=== PATIENT | female | born 1985 | race American Indian/Alaskan Native ===

== ENCOUNTER 2021-02-08 03:32 | Emergency (ER) | payer SELFPAY ==
--- NOTE | 2021-02-08 03:46 | Emergency Department Report ---
ED General Adult HPI - General Chief complaint: Dyspnea/Respdistress Stated complaint: SOB PUI?: Yes Time Seen by Provider: 02/08/21 03:45 Source: patient, RN notes reviewed Mode of arrival: Ambulatory Limitations: No Limitations - History of Present Illness Initial comments: The patient was evaluated in the emergency department for symptoms described in the history of present illness. He/she was evaluated in the context of the global COVID-19 pandemic, which necessitated consideration that the patient might be at risk for infection with the virus that causes COVID-19. Institutional protocols and algorithms that pertain to the evaluation of patients at risk for COVID-19 are in a state of rapid change based on informati on released by regulatory bodies including the CDC and federal and state organizations. These policies and algorithms were followed during the patient's care in the emergency department. Please note that these policies, procedures and recommendations changed on a rapid basis. The patient is a 35-year-old female who is not known to myself previously. She is not vaccinated against COVID-19. Her past medical history includes reactive airways disease, she believes that she is , and she believes that she is 3, para 2. She also has a history of irregular menstruation, and repo rts that last menstruation is in October 2020. The patient presents to the ER today with a complaint of chest tightness, cough, wheezing, shortness of breath and clear mucus production, associated with loss of taste for the past 3 to 4 days. Denies travel, surgery, immobilization, leg pain or leg swelling. Endorses mild nausea and vomiting. No urinary symptoms. She reports positive home test, but has not had formal medical confirmation of suspected . She reports that she does not smoke cigarettes. -: Gradual, days(s) Consistency: constant Improves with: rest Worsens with: movement - Related Data Previous Rx's Medication Instructions Recorded Last Taken Type Albuterol Sulfate [Proair 90 mcg IH Q4HR PRN #2 aer.pow.ba 02/08/21 Unknown Rx Respiclick] Doxylamine Succinate/Vit B6 1 each PO QHS PRN #30 tablet. 02/08/21 Unknown Rx [Roberto Carlos Espinal 10-10 mg Tablet] Jarret Root [Jarret] 250 mg PO QID PRN #30 capsule 02/08/21 Unknown Rx Multivitamin with Folic Acid [[facility] 400 mcg PO QDAY #30 tablet 02/08/21 Unknown Rx One Daily Essential Tablet] Vit-Fe Fumar-FA [ 1 tab PO QDAY #30 tablet 02/08/21 Unknown Rx Vitamin] predniSONE [Deltasone] 40 mg PO QDAY #8 tab 02/08/21 Unknown Rx Allergies Allergy/AdvReac Type Severity Reaction Status Date / Time No Known Allergies Allergy Unverified 07/24/14 19:35 ED Review of Systems ROS: Stated complaint: SOB Other details as noted in HPI Constitutional: malaise, weakness, other (Loss of taste) Eyes: denies: eye discharge Respiratory: cough, shortness of breath Cardiovascular: denies: syncope Gastrointestinal: nausea, vomiting Genitourinary: denies: urgency Neurological: weakness Psychiatric: anxiety Hematological/Lymphatic: denies: easy bleeding ED Past Medical Hx - Past Medical History Previous Medical History?: No - Surgical History Additional Surgical History: - Social History Smoking Status: Never Smoker Substance Use Type: None - Medications Home Medications: Home Medications Medication Instructions Recorded Confirmed Last Taken Type Albuterol Sulfate [Proair 90 mcg IH Q4HR PRN #2 aer.pow.ba 02/08/21 Unknown Rx Respiclick] Doxylamine Succinate/Vit B6 1 each PO QHS PRN #30 tablet.dr 02/08/21 Unknown Rx [Roberto Carlos Espinal 10-10 mg Tablet] Jarret Root [Jarret] 250 mg PO QID PRN #30 capsule 02/08/21 Unknown Rx Multivitamin with Folic Acid [[facility] 400 mcg PO QDAY #30 tablet 02/08/21 Unknown Rx One Daily Essential Tablet] Vit-Fe Fumar-FA [ 1 tab PO QDAY #30 tablet 02/08/21 Unknown Rx Vitamin] predniSONE [Deltasone] 40 mg PO QDAY #8 tab 02/08/21 Unknown Rx ED Physical Exam - General Limitations: Physical Limitation General appearance: alert, anxious, obese - Head Head exam: Present: atraumatic, normocephalic - Eye Eye exam: Present: normal appearance, EOMI. Absent: nystagmus - ENT ENT exam: Present: normal exam, normal orophraynx, mucous membranes moist, normal external ear exam - Neck Neck exam: Present: normal inspection, full ROM. Absent: tenderness, meningismus - Respiratory Respiratory exam: Present: respiratory distress, wheezes, rhonchi - Cardiovascular Cardiovascular Exam: Present: regular rate, normal rhythm, normal heart sounds. Absent: bradycardia, tachycardia, irregular rhythm, systolic murmur, diastolic murmur, rubs, gallop - GI/Abdominal GI/Abdominal exam: Present: soft. Absent: distended, tenderness, guarding, rebound, rigid, pulsatile mass - Extremities Exam Extremities exam: Present: normal inspection, full ROM, other (2+ pulses noted in the bilateral upper and lower extremities. There is no palpable cord. negative Homans sign. Muscular compartments are soft. The pelvis is stable.). Absent: pedal edema, calf tenderness - Back Exam Back exam: Present: normal inspection, full ROM. Absent: tenderness, CVA tenderness (R), CVA tenderness (L), paraspinal tenderness, vertebral tenderness - Neurological Exam Neurological exam: Present: alert, oriented X3, other (No facial droop. Tongue midline. Extraocular movements intact bilaterally. Facial sensation intact to light touch in V1, V2, V3 distribution bilaterally. 5 and a 5 strength in 4 extremities. Sensation intact to light touch in 4 extremities.). Absent: motor sensory deficit - Psychiatric Psychiatric exam: Present: anxious - Skin Skin exam: Present: warm, dry, intact, normal color. Absent: rash ED Course Vital Signs 02/08/21 02/08/21 02/08/21 03:34 04:31 04:45 Temperature 98.1 F Pulse Rate 77 76 Pulse Rate [ 68 Bilateral] Respiratory 27 H 24 Rate Respiratory 18 Rate [Bilateral ] Blood Pressure 149/87 125/72 [Right] O2 Sat by Pulse 96 100 Oximetry 02/08/21 02/08/21 02/08/21 06:45 08:36 09:13 Temperature Pulse Rate 96 H 95 H Pulse Rate [ Bilateral] Respiratory 24 30 H 20 Rate Respiratory Rate [Bilateral ] Blood Pressure 125/71 122/72 [Right] O2 Sat by Pulse 96 95 96 Oximetry - Reevaluation(s) Reevaluation #1: 02/08/21 04:18 Differential diagnosis, including but not limited to: Reactive airways disease, bronchitis, pneumonia, congestive heart failure, COVID-19, incidental Assessment and plan: 35-year-old female, who was afebrile, with reassuring vital signs with the exception of respiratory rate of 27 initially, who is not vacci nated against COVID-19, presenting during the COVID-19 pandemic, with loss of taste, cough, wheezing, shortness of breath. Reports a history of reactive airways disease. Denies travel, surgery, immobilization, leg pain or leg swelling. Reports that this episode today similar to prior episodes of reactive airways disease. I suspect bronchitis and reactive airways disease, with a possible superimposed component of nausea and vomiting associated with . Check EKG, appropriate laboratory studies, if , obtain ultrasound, urinalysis, x-ray the chest, start albuterol, Atrovent, steroids and supportive/symptomatic therapy. Reassess after initial data points. I discus sed this plan of care with the patient. She articulated understanding. 02/08/21 06:34 Patient resting comfortably at this time. She is in no acute distress. She is indeed confirmed to be . Ultrasound pending, urinalysis pending, chest x-ray pending. Care be transferred to the oncoming ER physician, to follow-up on ultrasound, urinalysis, reassess pulmonary status, and arrange final disposition. Given improvement in symptoms with lack of vomiting, this is likely nausea and vomitin g associated with , and probable reactive airways disease. Presuming no acute decompensation, it would be reasonable to discharge this patient to follow-up as an outpatient. ED Medical Decision Making - Lab Data Result diagrams: 02/08/21 05:13 02/08/21 05:13 Vital Signs 02/08/21 03:34 Temperature 98.1 F Pulse Rate 77 Respiratory 27 H Rate Blood Pressure 149/87 [Right] O2 Sat by Pulse 96 Oximetry - EKG Data -: EKG Interpreted by Nd EKG shows normal: sinus rhythm Rate: normal - EKG Data When compared to previous EKG there are: previous EKG unavailable 02/08/21 04:24 The EKG is interpreted at 04: 10 Sinus rhythm, 80 bpm. Normal axis, normal intervals, motion artifact, this EKG is not a STEMI. There is no prior for comparison - Radiology Data Radiology results: pending, report reviewed, image reviewed [facility] [address] [place] [address] Ultrasound Report Signed Patient: JEANNE MARIE MR#: [id number] 08 : 1985 Acct:[id number] Age/Sex: 35 / F ADM Date: 02/08/21 Loc: ED Attending Dr: Ordering Physician: NICANOR NOONAN MD Date of Service: 02/08/21 Procedure(s): US OB >= 14 weeks Fetus Accession Number(s): [id number] cc: NICANOR NOONAN MD ULTRASOUND OBSTETRIC COMPLETE INDICATION / CLINICAL INFORMATION: , with nausea and vomiting. Clinical Gestational Age (GA) in weeks, days: 16 weeks 4 days TECHNIQUE: Transabdominal. COMPARISON: None available. FINDINGS: NUMBER: Single PRESENTATION: cephalic PLACENTA: anterior and free of the os. MATERNAL ADNEXA: No significant abnormality. AMNIOTIC FLUID VOLUME: Subjectively normal, not measured. ANATOMY: Examination is not tailored to evaluate detailed anatomy. MEASUREMENTS: - Biparietal Diameter = 3.3 cm = 16 weeks 2 days - Head Circumference = 12.9 cm = 16 weeks 4 days - Abdominal Circumference = 11.7 cm = 17 weeks 3 days - Femur Length = 1.9 cm = 15 weeks 5 days - Estimated Weight (in grams, if calculated): 162 - Heart Rate (beats per minute): 149 ADDITIONAL FINDINGS: Cervix measures 3.7 cm. The cervical os appears closed. PERCENTILE ESTIMATED WEIGHT (if calculated): Not calculated AVERAGE ULTRASOUND AGE (AUA) in weeks, days = 16 weeks 4 days IMPRESSION: 1. Single intrauterine with AUA of 16 weeks 4 days. 2. No significant sonographic abnormality. Signer Name: Peterson Lino MD Signed: 02/08/2021 7:31 AM Workstation Name: [id number] Transcribed By: JS Dictated By: PETERSON LINO MD Electronically Authenticated By: PETERSON LINO MD Signed Date/Time: 02/08/21730 DD/ 8 [facility] [address] [place] [address] XRay Report Signed Patient: JEANNE MARIE MR#: [id number] 08 : 1985 Acct:[id number] Age/Sex: 35 / F ADM Date: 02/08/21 Loc: ED Attending Dr: Ordering Physician: NICANOR NOONAN MD Date of Service: 02/08/21 Procedure(s): XR chest 1V ap Accession Number(s): [id number] cc: NICANOR NOONAN MD Fluoro Time In Minutes: XR chest 1V ap INDICATION / CLINICAL INFORMATION: dyspnea. COMPARISON: None available. FINDINGS: Findings in the chest are accentuated by body habitus and phase of inspiration. SUPPORT DEVICES: None. HEART /PULMONARY VASCULATURE: The cardiac silhouette is accentuated by low lung volumes. Pulmonary vasculature is nonsignificantly congested. LUNGS / PLEURA: No focal airspace consolidation. No sizable pleural effusion. No pneumothorax. ADDITIONAL FINDINGS: No significant additional findings. IMPRESSION: Cardiomegaly with low lung volumes and bronchovascular crowding. No definite acute chest process. Signer Name: Peterson Lino MD Signed: 02/08/2021 7:39 AM Workstation Name: [id number] Transcribed By: JS Dictated By: PETERSON LINO MD Electronically Authenticated By: PETERSON LINO MD Signed Date/Time: 02/08/21738 DD/ 6 Critical care attestation.: If time is entered above; I have spent that time in minutes in the direct care of this critically ill patient, excluding procedure time. ED Disposition Clinical Impression: Reactive airway disease, , Nausea and vomiting Disposition: 01 HOME / SELF CARE / HOMELESS Is pt being admited?: No Does the pt Need Aspirin: No Condition: Good Instructions: Morning Sickness, Asthma, Adult, [id number] Additional Instructions: Patient is confirmed to be today. Please follow-up as soon as possible with an outpatient [facility]EMPL[employer] CLAIMS ADJUDICATOR to initiate outpatient care. Please take the vitamins as directed, and Diclegis as needed for nausea, and jarret tablets as needed for nausea. Use the albuterol and steroids as directed. Please follow-up with a general medical doctor in the next 5 days for repeat checkup and evaluation for respiratory status. Avoid consumption of alcohol, tobacco, smoke products, heavy and spicy foods. Please return to the emergency room right away with new pain, worsened pain, sherrie ration of pain, projectile vomiting, change in mental status, confusion, inability tolerate liquid feeds, new, worsened or different symptoms not present on the initial emergency room evaluation. Prescriptions: Doxylamine Succinate/Vit B6 [Roberto Carlos Espinal 10-10 mg Tablet] 1 each PO QHS PRN #30 tablet. PRN Reason: Nausea Multivitamin with Folic Acid [Cvs One Daily Essential Tablet] 400 mcg PO QDAY #30 tablet predniSONE [Deltasone] 40 mg PO QDAY #8 tab Jarret Root [Jarret] 250 mg PO QID PRN #30 capsule PRN Reason: Nausea Vit-Fe Fumar-FA [ Vitamin] 1 tab PO QDAY #30 tablet Albuterol Sulfate [Proair Respiclick] 90 mcg IH Q4HR PRN #2 aer.pow.ba PRN Reason: Wheezing Referrals: [facility] [Provider Group] - 3-5 Days [facility] [Provider Group] - 3-5 Days [facility] [Provider Group] - 3-5 Days Forms: Work/School Release Form(ED)
[2021-02-08] MEDS ORDERED: FAMOTIDINE 20 MG/2 ML INJ IV ONE (03:55)
[2021-02-08] MEDS ORDERED: IPRATROPIUM 0.02% NEBU 2.5 ML IH ONE (03:55)
[2021-02-08] MEDS ORDERED: ALBUTEROL 2.5 MG/3 ML NEBU IH ONE (03:55)
[2021-02-08] MEDS ORDERED: methylPREDNISolone Sod Succinate 125 MG/2 ML INJ IV ONE (03:55)
[2021-02-08] MEDS ORDERED: ACETAMINOPHEN 325 MG TAB PO PRN (03:55)
[2021-02-08] MEDS ORDERED: ONDANSETRON 4 MG/2 ML INJ IV ONE (03:55)
[2021-02-08 06:00] LABS: Hematocrit 32.5 % (30.3-42.9); Hemoglobin 10.5 gm/dl (10.1-14.3); Mean Corpuscular HGB Conc 32 % (30-34); Mean Corpuscular Volume 77 fl (79-97); Platelet Count 223 K/mm3 (140-440); Red Blood Count 4.22 M/mm3 (3.65-5.03); Red Cell Distribution Width 16.1 % (13.2-15.2)
[2021-02-08 06:10] LABS: INR 0.95 (0.87-1.13)
[2021-02-08 06:27] LABS: Alanine Aminotransferase 8 units/L (7-56); Albumin 3.4 g/dL (3.9-5); Blood Urea Nitrogen 6 mg/dL (7-17); Calcium 8.6 mg/dL (8.4-10.2); Hemolysis Index 1
[2021-02-08 06:28] LABS: BUN/Creatinine Ratio 12
--- NOTE | 2021-02-08 07:36 | Ultrasound Report ---
ULTRASOUND OBSTETRIC COMPLETE INDICATION / CLINICAL INFORMATION: , with nausea and vomiting. Clinical Gestational Age (GA) in weeks, days: 16 weeks 4 days TECHNIQUE: Transabdominal. COMPARISON: None available. FINDINGS: NUMBER: Single PRESENTATION: cephalic PLACENTA: anterior and free of the os. MATERNAL ADNEXA: No significant abnormality. AMNIOTIC FLUID VOLUME: Subjectively normal, not measured. ANATOMY: Examination is not tailored to evaluate detailed anatomy. MEASUREMENTS: - Biparietal Diameter = 3.3 cm = 16 weeks 2 days - Head Circumference = 12.9 cm = 16 weeks 4 days - Abdominal Circumference = 11.7 cm = 17 weeks 3 days - Femur Length = 1.9 cm = 15 weeks 5 days - Estimated Weight (in grams, if calculated): 162 - Heart Rate (beats per minute): 149 ADDITIONAL FINDINGS: Cervix measures 3.7 cm. The cervical os appears closed. PERCENTILE ESTIMATED WEIGHT (if calculated): Not calculated AVERAGE ULTRASOUND AGE (AUA) in weeks, days = 16 weeks 4 days IMPRESSION: 1. Single intrauterine with AUA of 16 weeks 4 days. 2. No significant sonographic abnormality. Signer Name: Eduar Lino MD Signed: 02/08/2021 7:31 AM Workstation Name: [id number]
--- NOTE | 2021-02-08 07:43 | XRay Report ---
XR chest 1V ap INDICATION / CLINICAL INFORMATION: dyspnea. COMPARISON: None available. FINDINGS: Findings in the chest are accentuated by body habitus and phase of inspiration. SUPPORT DEVICES: None. HEART /PULMONARY VASCULATURE: The cardiac silhouette is accentuated by low lung volumes. Pulmonary va sculature is nonsignificantly congested. LUNGS / PLEURA: No focal airspace consolidation. No sizable pleural effusion. No pneumothorax. ADDITIONAL FINDINGS: No significant additional findings. IMPRESSION: Cardiomegaly with low lung volumes and bronchovascular crowding. No definite acute chest process. Signer Name: Eduar Lino MD Signed: 02/08/2021 7:39 AM Workstation Name: [id number]
[2021-02-08 08:34] LABS: Bilirubin,Urine NEG (Negative); Blood,Urine NEG (Negative); Calcium Oxalate Crystals,Urine 3+; Color,Urine Yellow (Yellow); Mucus,Urine 3+ /HPF
[2021-02-08 08:37] VITALS: BP 122/72
--- NOTE | 2021-02-08 09:08 | Event Note ---
Date: 02/08/21 Patient reevaluated at 9:05 AM. She states her breathing is better. Respiratory rate is 20 breaths/min. Lung sounds have mild expiratory wheezing. Discussed with patient that she was 16 weeks 4 days and the need to follow-up with [facility]. Also discussed with her the need to get a Covid test. She states she understood these instructions and will get a [facility]ER follow-up and go and get Covid testing today.
--- NOTE | 2021-02-09 12:51 | Electrocardiograph Report ---
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
== END 2021-02-08 09:28 | disposition home or self-care (01) ==
LOC: ED 03:32
DX: O99.512 Diseases of the respiratory system complicating pregnancy, second trimester (principal); R11.2 Nausea with vomiting, unspecified; J45.909 Unspecified asthma, uncomplicated; O21.0 Mild hyperemesis gravidarum; Z3A.16 16 weeks gestation of pregnancy
CPT/HCPCS: 36415; 71045; 76805; 80053; 81001; 83735; 83880; 84443; 84484; 84702; 85027; 85610; 93005; 94644; 96374; 96375; 99285; J2405; J2930; J3490